=== PATIENT | female | born 1990 | race Caucasian/White ===

== ENCOUNTER 2016-11-16 22:04 | Emergency (ER) | payer SELFPAY ==
[2016-11-16 22:15] VITALS: BP 113/73
--- NOTE | 2016-11-16 22:38 | EDM.PDOC ---
ED HPI GI/ABDOMINAL - General Chief Complaint: Abdominal Pain Stated Complaint: PAIN IN AB AND NAUSEA Time Seen by Provider: 11/16/16 22:28 Source of Information: Reports: Patient History Limitations: Reports: No limitations - History of Present Illness INITIAL COMMENTS - FREE TEXT/NARRATIVE: 26-year-old female presents the ED with her . Chief complaint is right lower quadrant abdominal pain that has been present for the last week. It is constant. It radiates down into the right groin and along the medial aspect of her inner aspect of her right thigh the last 30 hours. Patient states it hurts to walk fully erect. No associated fever or chills. She does has loose stools. Pain made her nausea and vomiting. She took Zofran sublingually which does not seem to help. Patient has had previous tubal ligation and does not believe she could be .pain does not radiate to her back. She has no associated dysuria or in severe frequency. In particular no terminal dysuria. She does have problems with previous ovarian cysts. 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 Symptom Onset Date: 11/10/16 Timing/Duration: Reports: Day(s):, Getting worse, Gradual onset Location: RLQ (radiating into the right groin an 8 down the inner aspect of her right thigh.) Quality: Reports: ache, burning, stabbing, throbbing Severity: severe Improves with: Reports: other Worsens with: Reports: sitting up Context: Denies: sick contact (nothing seems to make it better or worse.), bad/ questionable food, out of country travel, recent surgery, recent trauma, lifting , activity/exercise, other Associated Symptoms (-Female): Reports: groin pain (right side), diarrhea ( stools are always loose and she had her gallbladder removed.), loss of appetite , malaise, nausea/vomiting. Denies: chest pain, back pain, shoulder pain, constipation, bloody stools, fever/chills, other (from the intensity of the pain.) Treatments [employer]: Reports: NSAIDS - Related Data Allergies/ADRs: Allergies Allergy/AdvReac Type Severity Reaction Status Date / Time amoxicillin Allergy Hives Verified 11/16/16 22:16 loratadine [From Claritin] Allergy Hives Verified 11/16/16 22:16 morphine Allergy Hives Verified 11/16/16 22:16 ranitidine [From Zantac] Allergy Hives Verified 11/16/16 22:16 Home Meds: Home Meds Ibuprofen 400 mg PO QID PRN 11/16/16 [History] Levonorgestrel [Mirena] 1 each IY ASDIRECTED 11/16/16 [History] Levothyroxine [Synthroid] 50 mcg PO ACBREAKFAST 11/16/16 [History] Sulfamethoxazole/Trimethoprim [Bactrim Ds Tablet] 1 each PO BID #14 tablet 11/17 [Rx] Past Medical History [employer] History: Reports: Other (see below) Other OB/BYN History: ovarian cysts Endocrine/Metabolic History: Reports: Hypothyroidism (admits to been relatively noncompliant with her levothyroxin dosage. On average this is half the doses per week.) - Past Surgical History HEENT Surgical History: Reports: Adenoidectomy, Tonsillectomy GI Surgical History: Reports: Cholecystectomy Female Surgical History: Reports: Tubal ligation Social & Family History - Family History Family Medical History: Noncontributory - Tobacco Use Smoking Status *Q: Current Every Day Smoker Years of Tobacco use: 10 Packs/Tins Daily: 0.1 - Caffeine Use Caffeine Use: Reports: Coffee, Soda - Recreational Drug Use Recreational Drug Use: No - Living Situation & Occupation Living situation: Reports: Occupation: employed [employer] GENER[employer] - Review of Systems Review Of Systems: See Below Constitutional: Reports: malaise, weakness, fatigue, decreased appetite. Denies : fever, chills HEENT: Reports: No symptoms Respiratory: Reports: no symptoms Cardiovascular: Reports: No symptoms Endocrine: Reports: no symptoms GI/Abdominal: Reports: Abdominal pain (see history of present illness), Diarrhea , Decreased appetite (stools are always on the loose side but not really diarrhea.), Nausea, Vomiting (due to the intensity of pain at times.). Denies: Constipation, Difficulty swallowing, Distension, Flatus, Hematemesis, Hematochezia, Melena, Mucous in stool : Reports: no symptoms Musculoskeletal: Reports: other (pain in her right medial thigh) Skin: Reports: no symptoms Neurological: Reports: no symptoms Psychiatric: Reports: No symptoms Hematologic/Lymphatic: Reports: no symptoms Immunologic: Reports: no symptoms ED EXAM, GI/ABD - Physical Exam Exam: See Below Exam Limited By: No limitations General Appearance: alert, moderate distress (seems to be in significant amount of pain.) Eyes: bilateral: normal appearance Throat/Mouth: Normal inspection, Normal lips, Normal oropharynx Head: atraumatic, normocephalic Neck: normal inspection, supple, non-tender, full range of motion. No: lymphadenopathy (R) Respiratory/Chest: no respiratory distress, lungs clear, normal breath sounds, no accessory muscle use Cardiovascular: normal peripheral pulses, regular rate, rhythm, no edema, no gallop, no murmur GI/Abdominal: no organomegaly, hypoactive bowel sounds, tenderness (right lower quadrant at McBurney's point but no true peritoneal signs.), other (she has pain along the distribution of the abductor mabel muscle where it inserts into the pelvic bone medial right thigh.). No: rebound, rigidity, splenomegaly, hernia, obturator sign Back Exam: normal inspection, full range of motion. No: CVA tenderness (L), CVA tenderness (R) Extremities: normal inspection, normal range of motion, non-tender, no pedal edema, normal capillary refill Neurological: alert, CN II-XII intact, normal cognition, normal gait Psychiatric: normal affect, normal mood Skin Exam: Warm, Dry, Intact, Normal color, No rash Course - Vital Signs Last Recorded V/S: Last Vital Signs Temp 36.2 C 11/16/16 22:10 Pulse 64 11/17/16 01:57 Resp 16 11/17/16 01:57 BP 113/73 11/16/16 22:10 Pulse Ox 98 11/17/16 01:57 - Orders/Labs/Meds Orders: Active Orders 24 hr Category Date Time Status Abdomen 1V Flat [CR] Stat Exams 11/16/16 22:41 Taken Abdomen Pelvis w Cont [CT] Stat Exams 11/16/16 23:27 Taken CULTURE URINE [RM] Stat Lab 11/17/16 00:38 Received Labs: Laboratory Tests 11/16/16 11/16/16 11/16/16 Range/Units 22:10 22:10 22:10 WBC 8.68 (3.98-10.04) K/mm3 RBC 4.67 (3.98-5.22) M/mm3 Hgb 14.1 (11.2-15.7) gm/L Hct 40.8 (34.1-44.9) % MCV 87.4 (79.4-94.8) fl MCH 30.2 (25.6-32.2) pg MCHC 34.6 (32.2-35.5) g/dl RDW Std Deviation 39.5 (36.4-46.3) fL Plt Count 270 (182-369) K/mm3 MPV 10.3 (9.4-12.3) fl Neut % (Auto) Cancelled Lymph % (Auto) Cancelled Griggs % (Auto) Cancelled Eos % (Auto) Cancelled Baso % (Auto) Cancelled Neut # Cancelled Lymph # Cancelled Griggs # Cancelled Eos # Cancelled Baso # Cancelled Neutrophils % (Manual) 58 (40-60) % Band Neutrophils % 0 (0-10) % Lymphocytes % (Manual) 34 (20-40) % Atypical Lymphs % 0 % Monocytes % (Manual) 6 (2-10) % Eosinophils % (Manual) 2 (0.7-5.8) % Basophils % (Manual) 0 L (0.1-1.2) Manual Slide Review Cancelled Platelet Estimate Adequate Plt Morphology Comment Normal RBC Morph Comment Normal Sodium 138 (136-145) mEq/L Potassium 3.6 (3.5-5.1) mEq/L Chloride 105 (98-107) mEq/L Carbon Dioxide 24 (21-32) mEq/L Anion Gap 12.6 (5-15) BUN 12 (7-18) mg/dL Creatinine 1.1 H (0.55-1.02) mg/dL Est Cr Clr Drug Dosing 69.13 mL/min Estimated GFR (MDRD) 60 (>60) mL/min BUN/Creatinine Ratio 10.9 L (14-18) Glucose 99 (74-106) mg/dL Calcium 9.1 (8.5-10.1) mg/dL Total Bilirubin 0.1 L (0.2-1.0) mg/dL AST 15 (15-37) U/L ALT 27 (14-59) U/L Alkaline Phosphatase 89 (46-116) U/L C-Reactive Protein < 0.2 (<1.0) mg/dL Total Protein 7.3 (6.4-8.2) g/dl Albumin 3.9 (3.4-5.0) g/dl Globulin 3.4 gm/dL Albumin/Globulin Ratio 1.2 (1-2) Lipase 129 (73-393) U/L HCG, Qual (NEGATIVE) Urine Color (Yellow) Urine Appearance (Clear) Urine pH (5.0-8.0) Ur Specific [place] (1.005-1.030) Urine Protein (Negative) Urine Glucose (UA) (Negative) Urine Ketones (Negative) Urine Occult Blood (Negative) Urine Nitrite (Negative) Urine Bilirubin (Negative) Urine Urobilinogen (0.2-1.0) Ur Leukocyte Esterase (Negative) Urine RBC (0-5) /hpf Urine WBC (0-5) /hpf Ur Epithelial Cells (0-5) /hpf Urine Bacteria (FEW) /hpf Urine Mucus (FEW) /hpf 11/16/16 11/16/16 Range/Units 22:10 22:40 WBC (3.98-10.04) K/mm3 RBC (3.98-5.22) M/mm3 Hgb (11.2-15.7) gm/L Hct (34.1-44.9) % MCV (79.4-94.8) fl MCH (25.6-32.2) pg MCHC (32.2-35.5) g/dl RDW Std Deviation (36.4-46.3) fL Plt Count (182-369) K/mm3 MPV (9.4-12.3) fl Neut % (Auto) Lymph % (Auto) Griggs % (Auto) Eos % (Auto) Baso % (Auto) Neut # Lymph # Griggs # Eos # Baso # Neutrophils % (Manual) (40-60) % Band Neutrophils % (0-10) % Lymphocytes % (Manual) (20-40) % Atypical Lymphs % % Monocytes % (Manual) (2-10) % Eosinophils % (Manual) (0.7-5.8) % Basophils % (Manual) (0.1-1.2) Manual Slide Review Platelet Estimate Plt Morphology Comment RBC Morph Comment Sodium (136-145) mEq/L Potassium (3.5-5.1) mEq/L Chloride (98-107) mEq/L Carbon Dioxide (21-32) mEq/L Anion Gap (5-15) BUN (7-18) mg/dL Creatinine (0.55-1.02) mg/dL Est Cr Clr Drug Dosing mL/min Estimated GFR (MDRD) (>60) mL/min BUN/Creatinine Ratio (14-18) Glucose (74-106) mg/dL Calcium (8.5-10.1) mg/dL Total Bilirubin (0.2-1.0) mg/dL AST (15-37) U/L ALT (14-59) U/L Alkaline Phosphatase (46-116) U/L C-Reactive Protein (<1.0) mg/dL Total Protein (6.4-8.2) g/dl Albumin (3.4-5.0) g/dl Globulin gm/dL Albumin/Globulin Ratio (1-2) Lipase (73-393) U/L HCG, Qual Negative (NEGATIVE) Urine Color Yellow (Yellow) Urine Appearance Clear (Clear) Urine pH 6.5 (5.0-8.0) Ur Specific [place] 1.025 (1.005-1.030) Urine Protein Negative (Negative) Urine Glucose (UA) Negative (Negative) Urine Ketones Negative (Negative) Urine Occult Blood Negative (Negative) Urine Nitrite Negative (Negative) Urine Bilirubin Negative (Negative) Urine Urobilinogen 0.2 (0.2-1.0) Ur Leukocyte Esterase Trace H (Negative) Urine RBC 0-5 (0-5) /hpf Urine WBC 10-20 H (0-5) /hpf Ur Epithelial Cells 30-40 H (0-5) /hpf Urine Bacteria Moderate H (FEW) /hpf Urine Mucus Not seen (FEW) /hpf Meds: Medications Discontinued Medications Generic Name Dose Route Start Last Admin Trade Name Freq PRN Reason Stop Dose Admin Diatrizoate Meglum/Diatrizoate Sod 90 ml 11/17/16 00:53 11/17/16 01:09 Gastrografin 37% PO 11/17/16 00:54 90 ml ONETIME ONE Administration Hydromorphone HCl 1 mg 11/16/16 22:42 11/16/16 22:49 Dilaudid IVPUSH 11/16/16 22:43 1 mg ONETIME ONE Administration Sodium Chloride 1,000 mls @ 150 mls/hr 11/16/16 22:45 11/16/16 22:45 Normal Saline IV 150 mls/hr ASDIRECTED JERRY Administration Ceftriaxone Sodium 1 gm/ 100 mls @ 200 mls/hr 11/17/16 00:42 11/17/16 00:46 Sodium Chloride IV 11/17/16 01:11 200 mls/hr ONETIME ONE Administration Iopamidol 125 ml 11/17/16 00:53 11/17/16 01:10 Isovue-300 (61%) IVPUSH 11/17/16 00:54 125 ml ONETIME ONE Administration Magnesium Citrate 240 ml 11/17/16 00:46 11/17/16 00:55 Citrate Of Magnesia PO 11/17/16 00:47 240 ml ONETIME ONE Administration Metoclopramide HCl 7.5 mg 11/16/16 22:42 11/16/16 22:49 Reglan IVPUSH 11/16/16 22:43 7.5 mg ONETIME ONE Administration Ondansetron HCl 4 mg 11/17/16 00:49 11/17/16 00:55 Zofran IVPUSH 11/17/16 00:50 4 mg ONETIME ONE Administration Sodium Chloride 10 ml 11/17/16 00:53 11/17/16 01:10 Saline Flush FLUSH 10 ml ONETIME PRN Administration IV FLUSH - Radiology Interpretation Free Text/Narrative:: 26-year-old female presents the ED for evaluation of right lower quadrant abdominal pain for the last but she has had for the last week. Pain worsened last evening where it started to radiate down into the right groin and into the medial aspect of her right thigh. She states she cannot squat fully erect. She walks slower than normal. It hurts to cough. She has constant loose stools since having her gallbladder removed and no worse than normal. No associated fever or chills. She's had vomiting on a couple occasions due to the intensity of pain. Using Zofran sublingual hasn't stopped for nausea vomiting. It is tubal ligation. Previous history of ovarian cyst. Examination shows pain at McBurney's point is where she points to point of maximum tenderness but I cannot identify guarding peritonitis or rebound tenderness in this area. Overall suspicion is that this may be a right ovarian cyst. Plan routine labs to include a beta hCG to be done. KUB will be done and then the palm be to go ahead with CT of the abdomen and pelvis.she appears to be in significant discomfort and she'll have an IV started of normal saline at 150 mils per hour. Given Dilaudid 1 mg IV and Reglan 10 mg IV for pain relief. - Re-Assessments/Exams Free Text/Narrative Re-Assessment/Exam: 11/16/16 23:27 KUB done shows extensive stool throughout the entire colon compatible with significant constipation. There are no signs of bowel obstruction. Since her pain is so well localized to McBurney's point I will proceed with CT of the abdomen and pelvis with oral and IV contrast. 11/17/16 00:43 labs reveal a total white count of 8.68 with essentially normal differential. Hemoglobin is 14.1 hematocrit of 40.8 and platelets are 270,000. Chemistry essentially was normal.hCG was negative. CRP was less than 0.2 which identify she does not have any systemic signs of infection. The urine is positive for 10-20 white blood cells per high-power field and 0-5 red cells. Moderate bacteria appreciated. Culture ordered. She will be given Rocephin 1 g intravenously while she is in the ED. CT is planned for around 1:00 in the morning. 11/17/16 00:50 she still struggling getting down the last bottle of contrast media. Feeling more nauseated. Will give her Zofran 4 mg IV at this time. There is advised to monitor for possibility of dystonic reaction. 11/17/16 01;25: CT of the abdomen and pelvis has been completed. It reveals a stomach filled with contrast. Most of the small bowel has filled with contrast as well. The liver appears normal pancreas appears normal adrenal glands appear normal kidneys appear normal as do the drainage systems. There is a large amount of stool throughout the entire colon as appreciated on KUB. There is a 3 cm left ovarian cyst with some degree of complexity. It may have been a recent corpus luteum hemorrhage. There is physiologic amount of fluid in the pelvis. She's feeling better after the last dose of Dilaudid and nausea is improved. She is elected to have a bowel movement or 2 from the contrast going through the bowel tonight. She is to take 8 ounces of Citroma tomorrow with 4-5 ounces of juice of choice once to provide bowel cleanse. After this of advised MiraLax powder 17 g one scoop every single day to prevent similar occurrence. Taking her thyroid medication on a regular basis may also improve constipation problems. Of course advised high gr cereals and breads. Plenty of vegetables and fruits. She will followup with personal care provider if any further problems occur. Departure - Departure Time of Disposition: 01:36 Disposition: Home, Self-Care 01 Condition: fair Clinical Impression: Lower urinary tract infection, Constipation by delayed colonic transit Abdominal pain Qualifiers: Abdominal location: right lower quadrant Qualified Code(s): R10.31 - Right lower quadrant pain Prescriptions: Sulfamethoxazole/Trimethoprim [Bactrim Ds Tablet] 1 each PO BID #14 tablet Instructions: Constipation, Adult, Abdominal Pain, Adult, Agru-qu-Chmo, Urinary Tract Infection, Adult Referrals: PCP,None [Primary Care Provider] - Forms: ED Department Discharge Additional Instructions: evaluation in the emergency room tonight in regards to diffuse right-sided lower abdominal pain for the better part of the week. Pain is increased in 10 in nature last night now radiating into the right groin and right anterior medial thigh. The pain is localized to where the appendix is basically located in the abdomen. Examination did not suggest an acute appendicitis but the possibility of a ruptured appendix is certainly appreciated. As it turned out x- rays confirmed severe constipation with the entire foreign half feet of colon being filled with stool. Urinary tract infection is also identified involving the lower urinary tract and likely the ureter on the right side leading up to the kidney which I think is causing that pain radiating to right groin and thigh.. CT scan of the abdomen and pelvis was performed to make sure we were not missing a problem with the appendix or ovaries.appendix is well-visualized and is normal. There is a left ovarian cyst measuring about 3 cm in size and at some point time in the next 2-3 weeks he should have a follow up with [employer] doctor and a pelvic ultrasound to have a better look at this ovary. It is not an emergency problem. First dose of antibiotic was given in the emergency room Rocephin 1 g to topical therapy urinary tract infection. Otherwise she were treated with intravenous fluids pain medication and antinausea medications. You need to take Citroma tomorrow morning suggest 8 ounces with 45 ounces of juice of choice taken by mouth once. This will usually start work in one to 2 hours and will usually produce 45 bowel movements often ending in some degree of diarrhea. You may want to do this only appear not going to be out of work and will be close to home. This is required as the colon is severely filled with stool and without complete cleanse problems are likely to recur within 10 days. I would suggest taking MiraLax powder 17 g one scoop daily to prevent a similar occurrence. Of note he would also help to take your thyroid medication daily as low thyroid levels will cause constipation - My Orders Last 24 Hours: My Active Orders 11/16/16 22:41 Abdomen 1V Flat [CR] Stat 11/16/16 23:27 Abdomen Pelvis w Cont [CT] Stat 11/17/16 00:38 CULTURE URINE [RM] Stat - Assessment/Plan Last 24 Hours: My Active Orders 11/16/16 22:41 Abdomen 1V Flat [CR] Stat 11/16/16 23:27 Abdomen Pelvis w Cont [CT] Stat 11/17/16 00:38 CULTURE URINE [RM] Stat
[2016-11-16] MEDS ORDERED: Metoclopramide 10 MG/2 ML SDV IVPUSH ONE (22:42)
[2016-11-16] MEDS ORDERED: HYDROmorphone 1 MG/ML Syringe IVPUSH ONE (22:42)
[2016-11-16] MEDS ORDERED: Sodium Chloride 0.9% 1,000 ML IV SCH (22:45)
[2016-11-17] MEDS ORDERED: cefTRIAXone 1 GM in Sodium Chloride 0.9% 100 ML IV ONE (00:42)
[2016-11-17] MEDS ORDERED: Magnesium Citrate Solution 296 ML Bottle PO ONE (00:46)
[2016-11-17] MEDS ORDERED: Ondansetron 4 MG/2 ML SDV IVPUSH ONE (00:49)
[2016-11-17] MEDS ORDERED: Diatrizoate Meglumine/Diatrizoate Sodium 37% 120 ML Bottle PO ONE (00:53)
[2016-11-17] MEDS ORDERED: Iopamidol 612 MG/ML 150 ML Bottle IVPUSH ONE (00:53)
[2016-11-17] MEDS: Sodium Chloride 0.9% 10 ML Syringe FLUSH PRN ×2 (00:56→01:10)
--- NOTE | 2016-11-17 07:05 | CR ---
Abdomen: Supine view of the abdomen was obtained. Comparison: No previous study. IUD present within the pelvis. Bowel gas pattern is normal. Slight increased stool within the colon is noted. No abnormal calcifications or soft tissue abnormality is seen. Impression: 1. Mild increased stool. IUD. Diagnostic code #2
--- NOTE | 2016-11-17 07:24 | CT ---
CT abdomen and pelvis Technique: Multiple axial sections were obtained from above the dome of the diaphragm inferiorly through the pubic symphysis. Intravenous and oral contrast was utilized. Delayed images were also obtained through the bladder. Comparison: No previous CT imaging, previous abdominal x-ray performed earlier in the evening on 11/16/16 (10:43 PM). Visualized lung bases show nothing acute. Liver shows no focal parenchymal abnormality. Spleen appears within normal limits. Spleen size has a length of 9.2 cm which is normal. Kidneys show symmetric contrast enhancement. Small low density abnormality noted within the lower left kidney measuring 8 mm in size which is felt compatible with small cortical cyst. Adrenal glands show no nodule. Pancreas is unremarkable. Gallbladder is not seen. Aorta shows no aneurysmal dilatation. No retroperitoneal adenopathy or mesenteric abnormalities are seen. No pelvic mass or adenopathy is seen. Delayed images show contrast within the bladder. IUD present within the uterus appears to be satisfactory in location. Small collapsing cyst noted within the left ovary which is felt to be physiologic. Appendix is seen and appears normal. Bone window settings were reviewed which appear within normal limits for the patient's age Impression: 1. Collapsing cyst within the left ovary felt to be physiologic. No further follow-up felt to be needed. 2. Other incidental findings as noted above. Nothing acute is appreciated. Diagnostic code #2 I agree with preliminary report issued by [facility] (preliminary report dictated on 11/17/16, 2:28 AM Central Time)
== END 2016-11-17 02:00 | disposition home or self-care (01) ==
LOC: JD.ED 22:04
DX: N39.0 Urinary tract infection, site not specified (principal); K59.01 Slow transit constipation; E03.9 Hypothyroidism, unspecified; F17.210 Nicotine dependence, cigarettes, uncomplicated; Z90.49 Acquired absence of other specified parts of digestive tract; Z98.890 Other specified postprocedural states; Z88.1 Allergy status to other antibiotic agents; Z88.5 Allergy status to narcotic agent; Z88.8 Allergy status to other drugs, medicaments and biological substances
CPT/HCPCS: 36415; 74000; 74177; 80053; 81001; 83690; 84703; 85025; 86140; 87086; 96361; 96365; 96375; 99285; A9270; J0696; J1170; J2405; J2765; J7030; J7040; J7050; Q9963; Q9967; 99284